=== PATIENT | male | born 1995 | race Asian ===

== ENCOUNTER 2017-07-30 21:36 | Emergency (ER) | payer OTHER ==
[2017-07-30] MEDS ORDERED: diPHENhydraMINE IV* 50 MG/ML 1 ml VIAL (BENADRYL) IV ONE (21:58)
[2017-07-30] MEDS ORDERED: Metoclopramide IV* 5 MG/ML 2 ML VIAL IV ONE (21:58)
[2017-07-30] MEDS ORDERED: Ketorolac INJ* 30 MG/ML 1 ML VIAL IV ONE (21:58)
[2017-07-30] MEDS ORDERED: NS 0.9% 1000 ML* 1,000 ML IV ONE (21:58)
[2017-07-30 22:42] LABS: ABS Basophils 0 10^3/ul (0-0.2); ABS Eosinophils 0.1 10^3/ul (0-0.6); ABS Lymphocytes 1.2 10^3/ul (1.0-4.8); ABS Monocytes 0.4 10^3/ul (0-0.8); ABS Neutrophils 5.5 10^3/ul (1.5-7.7); ABS Nucleated RBC 0 10^3/ul; Eosinophil % 1.4 % (0-6); Hematocrit 44 % (42-52); Hemoglobin 15.1 g/dl (14.0-18.0); Mean Corpuscular HGB Conc 34 g/dl (31-36); Mean Corpuscular Hemoglobin 31 pg (27-31); Mean Corpuscular Volume 91 fL (80-94); Mean Platelet Volume 8 um3 (7.4-10.4); Nucleated Red Blood Cells % 0; Platelet Count 231 10^3/ul (150-450); Red Blood Count 4.81 10^6/ul (4.0-5.4); Red Cell Distribution Width 13 % (10.5-15); White Blood Count 7.2 10^3/ul (3.5-10.8)
[2017-07-30 22:51] LABS: EGFR Non-African American 110.8 (>60)
--- NOTE | 2017-07-30 23:19 | ED ---
Liyah Vigil Gabriel, scribed for Elfar, Abdul, MD on 07/30/17 at 2207 . Headache - HPI Summary HPI Summary: This patient is a 22 year old M BIBA to [facility] with a chief complaint of a HENRÁNDEZ that began 2 hours ago. The patient rates the pain 7/10 in severity. Symptoms aggravated by movement. Symptoms alleviated by light. Patient reports nausea and dizziness. Patient denies fever and vomiting. No history of migraines. - History Of Current Complaint Chief Complaint: EDHeadache Stated Complaint: HEADACHE Time Seen by Provider: 07/30/17 21:45 Hx Obtained From: Patient Onset/Duration: Started hours ago - 2, Still Present Initially Headache Was: Initial Pain Scale(0-10)= - 7 Currently Pain Is: Current Pain Scale(0-10)= - 7 Timing: Constant Aggravating Factor: Position Change Allevating Factors: Other (Noted In Comments) - lights Associated Signs And Symptoms: Negative - fever and vomiting, Dizziness, Nausea - Allergies/Home Medications Allergies/Adverse Reactions: Allergies Allergy/AdvReac Type Severity Reaction Status Date / Time No Known Allergies Allergy Verified 07/30/17 22:06 PMH/Surg Hx/FS Hx/Imm Hx Previously Healthy: Yes Endocrine/Hematology History: Denies: Hx Blood Disorders, Hx Blood Transfusions, Hx Bone Marrow Disease, Hx Diabetes Cardiovascular History: Denies: Hx Angioplasty, Hx Auto Implanted Cardiovert Defib, Hx Cardiac Arrest EENT History: Denies: Hx Deafness, Hx Seasonal Allergies Neurological History: Reports: Hx Headaches Denies: Hx CVA, Hx Dementia, Hx Migraine Infectious Disease History: No Infectious Disease History: Denies: Traveled Outside the [place] in Last 30 Days - Family History Known Family History: Negative: Cardiac Disease, Hypertension, Diabetes, Renal Disease, Respiratory Disease, Seizure Disorder - Social History Occupation: Student Lives: Dormitory/Roommates Alcohol Use: None Substance Use Type: Reports: None Smoking Status (MU): Light Every Day Tobacco Smoker Review of Systems Negative: Fever Positive: Nausea. Negative: Vomiting Neurological: Other - dizziness All Other Systems Reviewed And Are Negative: Yes Physical Exam - Summary Physical Exam Summary: VITAL SIGNS: Reviewed. GENERAL: Patient is a well-developed and nourished male who is lying comfortable in the stretcher. Patient is not in any acute respiratory distress. HEAD AND FACE: No signs of trauma. No ecchymosis, hematomas or skull depressions. No sinus tenderness. EYES: PERRLA, EOMI x 2, No injected conjunctiva, no nystagmus. EARS: Hearing grossly intact. Ear canals and tympanic membranes are within normal limits. MOUTH: Oropharynx within normal limits. NECK: Supple, trachea is midline, no adenopathy, no JVD, no carotid bruit, no c- spine tenderness, neck with full ROM. CHEST: Symmetric, no tenderness at palpation LUNGS: Clear to auscultation bilaterally. No wheezing or crackles. CVS: Regular rate and rhythm, S1 and S2 present, no murmurs or gallops appreciated. ABDOMEN: Soft, non-tender. No signs of distention. No rebound no guarding, and no masses palpated. Bowel sounds are normal. EXTREMITIES: FROM in all major joints, no edema, no cyanosis or clubbing. NEURO: Alert and oriented x 3. No acute neurological deficits. Speech is normal and follows commands. SKIN: Dry and warm Triage Information Reviewed: Yes Vital Signs On Initial Exam: Initial Vitals Temp Pulse Resp BP Pulse Ox 98.8 F 55 18 122/70 98 07/30/17 21:48 07/30/17 21:48 07/30/17 21:48 07/30/17 21:48 07/30/17 21:48 Vital Signs Reviewed: Yes Diagnostics - Vital Signs Vital Signs Temp Pulse Resp BP Pulse Ox 07/30/17 21:48 98.8 F 55 18 122/70 98 - Laboratory Result Diagrams: 07/30/17 22:15 07/30/17 22:15 Lab Statement: Any lab studies that have been ordered have been reviewed, and results considered in the medical decision making process. Re-Evaluation - Re-Evaluation First Eval Re-Evaluation Time: 23:11 Change: Improved Headache Course/Dx - Course Assessment/Plan: This patient is a 22 year old M BIBA to [facility] with a chief complaint of a HERNÁNDEZ that began 2 hours ago. The patient rates the pain 7/10 in severity. Symptoms aggravated by movement. Symptoms alleviated by light. Patient reports nausea and dizziness. Patient denies fever and vomiting. No history of migraines. Test results with no significant abnormalities. In the ED course the patient was given Reglan, Benadryl, toradol, and IV fluids. Dx headache. Patient will be discharged and follow up from [facility]. The patient is agreeable with this plan. - Diagnoses Provider Diagnoses: Headache Discharge - Discharge Plan Condition: Stable Disposition: HOME Patient Education Materials: Acute Headache (ED) Referrals: [facility] [place] [Primary Care Provider] - 2 Days Additional Instructions: RETURN TO EMERGENCY DEPARTMENT FOR ANY NEW OR WORSENING SYMPTOMS The documentation as recorded by the Liyah skelton Gabriel accurately reflects the service I personally performed and the decisions made by , Ana Rojas MD.
[2017-07-30 23:39] VITALS: BP 104/51
== END 2017-07-30 23:37 | disposition home or self-care (01) ==
LOC: ED 21:36
DX: R51 Headache (principal); R11.0 Nausea; F17.210 Nicotine dependence, cigarettes, uncomplicated
CPT/HCPCS: 36415; 80053; 85025; 86140; 99284; J1200; J1885; J2765